=== PATIENT | male | born 1990 | race African-American/Black ===

== ENCOUNTER 2017-11-07 14:48 | Emergency (ER) | payer MEDICAID, OTHER ==
[~2017-11-07] VITALS: Ht 175.3 cm; Wt 105.0 kg
[~2017-11-07 14:48] MED LIST: HYDR-1348; SULF1TAB47
[2017-11-07] MEDS ORDERED: IBUPROFEN 600MG TABLET PO ONE (18:00)
[2017-11-07 18:09] VITALS: BP 154/89
== END 2017-11-07 20:53 | disposition home or self-care (01) ==
LOC: ER 14:48
DX: M25.511 Pain in right shoulder (principal); F17.200 Nicotine dependence, unspecified, uncomplicated; F12.10 Cannabis abuse, uncomplicated
CPT/HCPCS: 73030; 99284

== ENCOUNTER 2018-04-30 18:58 | Emergency (ER) | payer MEDICAID ==
[~2018-04-30] VITALS: Ht 175.3 cm; Wt 100.0 kg
[2018-04-30 23:40] LABS: CHLORIDE 108 mEq/L (98-107)
[2018-04-30 23:44] LABS: PROTHROMBIN TIME 10.3 sec (9.1-11.1)
[2018-04-30 23:59] LABS: BASOPHILS % 0.7 % (0.0-2.0); EOSINOPHILS % 2.2 % (0.0-5.0); HEMATOCRIT. 42.1 % (42.0-52.0); HEMOGLOBIN. 14.2 g/dL (14.0-18.0); MEAN CORPUSCULAR VOLUME 97.9 fL (80.0-94.0); MEAN PLATELET VOLUME 9.6 fl (7.4-10.4); MONOCYTES % 11.2 % (2.0-8.0); NEUTROPHILS % 46.9 % (40.0-76.0); PLATELET 237 x1000/uL (130-400); RED CELL DISTRIBUTION WIDTH 13.5 % (11.6-14.6)
[2018-05-01 00:05] VITALS: BP 131/77
[2018-05-01 00:23] LABS: CLARITY URINE CLEAR (CLEAR); COLOR URINE DARK YELLOW (YELLOW); KETONES URINE 1+ (NEGATIVE); LEUKOCYTE ESTERASE URINE NEGATIVE (NEGATIVE); NITRITE URINE NEGATIVE (NEGATIVE); OCCULT BLOOD URINE NEGATIVE (NEGATIVE); PH URINE 5.5 (4.5-8.0); PROTEIN URINE NEGATIVE (NEGATIVE); SPECIFIC GRAVITY URINE 1.038 (1.005-1.030)
== END 2018-05-01 01:04 | disposition home or self-care (01) ==
LOC: ER 18:58
DX: R04.0 Epistaxis (principal); F17.200 Nicotine dependence, unspecified, uncomplicated; F12.10 Cannabis abuse, uncomplicated; Z98.890 Other specified postprocedural states; Z79.899 Other long term (current) drug therapy
CPT/HCPCS: 36415; 71045; 80053; 81003; 85025; 85610; 99284; Z7610

== ENCOUNTER 2021-10-11 20:47 | Emergency (ER) | payer MEDICAID ==
[~2021-10-11] VITALS: Ht 182.9 cm; Wt 150.0 kg
[2021-10-11 21:11] VITALS: BP 176/105
[2021-10-12] MEDS ORDERED: ASPIRIN 325MG EC TABLET PO ONE (08:15)
[2021-10-12 09:22] LABS: BASOPHILS % 0.6 % (0.0-2.0); EOSINOPHILS % 1.9 % (0.0-5.0); HEMATOCRIT. 47.4 % (42.0-52.0); LYMPHOCYTES % 30.8 % (20.0-50.0); MEAN CORPUSCULAR HEMOGLOBIN 33.1 pg (28.0-32.0); MEAN CORPUSCULAR VOLUME 98.3 fL (80.0-94.0); MEAN PLATELET VOLUME 8.4 fl (7.4-10.4); MONOCYTES % 10.5 % (2.0-8.0); NEUTROPHILS % 56.2 % (40.0-76.0); PLATELET 320 x1000/uL (130-400); RED BLOOD CELL COUNT 4.82 mill/uL (4.7-6.1); RED CELL DISTRIBUTION WIDTH 13.2 % (11.6-14.6)
[2021-10-12 09:37] LABS: CHLORIDE 104 mEq/L (98-107)
== END 2021-10-12 11:42 | disposition home or self-care (01) ==
LOC: ER 20:47
DX: R07.89 Other chest pain (principal); F12.10 Cannabis abuse, uncomplicated
CPT/HCPCS: 36415; 71045; 80053; 84484; 85025; 93005; 99285